=== PATIENT | female | born 1995 | race Caucasian/White ===

== ENCOUNTER 2019-02-20 14:16 | Emergency (ER) | payer OTHER ==
[~2019-02-20] VITALS: Ht 172.7 cm; Wt 90.7 kg
[~2019-02-20 14:16] MED LIST: CEPH250SUA PO; CETI1SY; CODACEE120 PO; Colace100 MG PO; FLUO10; FLUO10 PO; FLUO20 PO; FYCOMPA8 MG PO; LEVE500; LEVE500 PO; MUPI2TO TOP; Norco 5-325 Ta1 EACH PO; ONFI PO; ONFI2.5 MG/1 M PO; ONFI20 MG PO; OXCA150; OXCA150 PO; OXCA300 PO; SILSUL1TC TOP
[2019-02-20] MEDS ORDERED: Cephalexin250 MG/5 M PO (16:53)
[2019-02-20] MEDS ORDERED: Lotrisone Cream45 GM TOP (16:53)
[2019-02-20] MEDS ORDERED: FLUO10 (17:10)
[2019-02-20] MEDS ORDERED: BRIVIACT PO (17:10)
[2019-02-20] MEDS ORDERED: DIVA500EC PO (17:11)
== END 2019-02-20 17:10 | disposition home or self-care (01) ==
LOC: ER 14:16
DX: B35.6 Tinea cruris (principal); R10.2 Pelvic and perineal pain; F84.0 Autistic disorder; Z79.899 Other long term (current) drug therapy
CPT/HCPCS: 99282

== ENCOUNTER 2024-07-25 22:05 | Emergency (ER) | payer OTHER ==
[~2024-07-25] VITALS: Ht 167.6 cm; Wt 68.0 kg
[2024-07-25 22:05] VITALS: BP 110/66
[~2024-07-25 22:05] MED LIST changes: +BRIVIACT PO; +Cephalexin250 MG/5 M PO; +DIVA500EC PO; +Lotrisone Cream45 GM TOP
[2024-07-25] MEDS ORDERED: Lidocaine/Tetracaine/Epinephr 3 ML GEL SYRINGE TOP ONE (22:45)
[2024-07-25] MEDS ORDERED: Ibuprofen 100 MG/5 ML 5ML UDC PO ONE (23:20)
== END 2024-07-26 00:34 | disposition home or self-care (01) ==
LOC: ER 22:05
DX: S01.01XA Laceration without foreign body of scalp, initial encounter (principal); W22.8XXA Striking against or struck by other objects, initial encounter; Z79.899 Other long term (current) drug therapy
CPT/HCPCS: 12001; 99283-25; A9270